=== PATIENT | male | born 1970 | race American Indian/Alaskan Native ===

== ENCOUNTER 2020-03-28 13:18 | Emergency (ER) | payer MEDICARE ==
--- NOTE | 2020-03-28 20:26 | Emergency Department Report ---
ED General Adult HPI - General Chief complaint: Medical Clearance Stated complaint: LFT LEG CATHETER CLOGGED PUI?: No Time Seen by Provider: 03/28/20 20:11 Source: patient Mode of arrival: Ambulatory Limitations: Language Barrier (pt is deaf) - History of Present Illness Initial comments: 49-year-old male, history of ESRD, presents to ED to have Vas-Cath evaluated. Patient is on schedule. Patient states he was last dialyzed, on time, 2 days ago. Patient went for dialysis today and they found that his femoral Vas-Cath was clogged. Patient was sent to the ED for evaluation. Benzol Still Operator: Dr Nicole -: This afternoon Severity scale (0 -10): 0 Improves with: none Worsens with: none Associated Symptoms: denies other symptoms. denies: cough, fever/chills, nausea/vomiting, shortness of breath ED Review of Systems ROS: Stated complaint: LFT LEG CATHETER CLOGGED Other details as noted in HPI Comment: All other systems reviewed and negative Constitutional: denies: fever Respiratory: denies: cough, shortness of breath Gastrointestinal: denies: nausea, vomiting ED Past Medical Hx - Past Medical History Hx Hypertension: Yes Hx Renal Disease: Yes - Social History Smoking Status: Current Every Day Smoker Substance Use Type: None ED Physical Exam - General Limitations: No Limitations General appearance: alert, in no apparent distress - Head Head exam: Present: atraumatic - Eye Eye exam: Present: normal appearance, PERRL, EOMI - ENT ENT exam: Present: mucous membranes moist - Neck Neck exam: Present: normal inspection - Respiratory Respiratory exam: Present: normal lung sounds bilaterally. Absent: respiratory distress - Cardiovascular Cardiovascular Exam: Present: regular rate, normal rhythm - GI/Abdominal GI/Abdominal exam: Present: soft. Absent: distended, tenderness - Extremities Exam Extremities exam: Present: normal inspection - Neurological Exam Neurological exam: Present: alert, oriented X3 - Psychiatric Psychiatric exam: Present: normal affect, normal mood - Skin Skin exam: Present: warm, dry, intact, normal color ED Course Vital Signs 03/28/20 03/28/20 03/28/20 13:26 20:45 21:03 Temperature 98.2 F 98.0 F Pulse Rate 102 H 79 81 Respiratory 18 19 Rate Blood Pressure 95/53 96/52 [Left] Blood Pressure 143/90 [Right] O2 Sat by Pulse 96 99 Oximetry - Reevaluation(s) Reevaluation #1: 03/28/20 20:26 RN able to draw blood and flush Vas Cath. - Consultations Consultation #1: 03/28/20 22:00 Spoke w/ Dr Sanders, who covers for [employer]. States ok to give kayexalate for potassium of 5.2 since he is able to get dialyzed in the AM at his center. ED Medical Decision Making - Lab Data Result diagrams: 03/28/20 20:45 03/28/20 20:45 - Medical Decision Making Pt has been instructed to return to dialysis center tomorrow at 10 AM if Vas Cath working, which it seems to be. Pt given a dose of kayexalate for mild hyperkalemia. SPoke w/ Dr Chiu, [employer]. Pt is in no resp distress. Will discharge at this time. - Differential Diagnosis hyperkalemia, catheter malfunction Critical care attestation.: If time is entered above; I have spent that time in minutes in the direct care of this critically ill patient, excluding procedure time. ED Disposition Clinical Impression: Encounter for dialysis catheter care, Hyperkalemia Disposition: -01 TO HOME OR SELFCARE Is pt being admited?: No Condition: Stable Instructions: End-Stage Kidney Disease (ED) Referrals: PRIMARY CARE, [Primary Care Provider] - 3-5 Days Time of Disposition: 21:35
[2020-03-28 21:03] VITALS: BP 143/90
[2020-03-28 21:12] LABS: Basophils # (Auto) 0.1 K/mm3 (0.0-0.1); Eosinophils # (Auto) 0.4 K/mm3 (0.0-0.4); Eosinophils % (Auto) 7.2 % (0.0-4.3); Hematocrit 34.3 % (35.5-45.6); Hemoglobin 11.1 gm/dl (11.8-15.2); Lymphocytes # (Auto) 0.7 K/mm3 (1.2-5.4); Mean Corpuscular HGB Conc 32 % (32-34); Mean Corpuscular Volume 89 fl (84-94); Monocytes # (Auto) 0.7 K/mm3 (0.0-0.8); Platelet Count 179 K/mm3 (140-440); Red Blood Count 3.88 M/mm3 (3.65-5.03)
[2020-03-28 21:14] LABS: Red Cell Distribution Width 22.6 % (13.2-15.2)
[2020-03-28 21:30] LABS: Calcium 10.3 mg/dL (8.4-10.2)
[2020-03-28] MEDS ORDERED: SODIUM POLYSTYRENE 15 GM/60 ML ORAL LIQD PO ONE (21:33)
== END 2020-03-28 23:09 | disposition home or self-care (01) ==
LOC: ED 13:18
DX: T82.898A Other specified complication of vascular prosthetic devices, implants and grafts, initial encounter (principal); E87.6 Hypokalemia; I10 Essential (primary) hypertension; F17.200 Nicotine dependence, unspecified, uncomplicated
CPT/HCPCS: 36415; 80048; 85025; 99283